=== PATIENT | male | born 1960 | race Hispanic/Latino ===

== ENCOUNTER 2018-05-26 07:38 | Inpatient (IN) | payer MEDICAID ==
[2018-05-26] MEDS ORDERED: Albuterol 0.083% Inhal Sol (2.5 mg/3 mL) UD INH STA (08:33)
[2018-05-26] MEDS ORDERED: Albuterol 0.042% Inhal Sol (1.25 mg/3 mL) UD ONE (08:41)
--- NOTE | 2018-05-26 09:39 | RAD ---
Date of service: 05/26/2018 PROCEDURE: CHEST RADIOGRAPH, 1 VIEW HISTORY: dyspnea COMPARISON: None available. FINDINGS: LUNGS: Clear. PLEURA: No pneumothorax or pleural fluid seen. CARDIOVASCULAR: Normal. OSSEOUS STRUCTURES: No significant abnormalities.Left shoulder arthrosis and thoracic spondylosis VISUALIZED UPPER ABDOMEN: Normal. OTHER FINDINGS: None. IMPRESSION: No acute cardiopulmonary pathology appreciated.
[2018-05-26 10:02] LABS: BASO # 0.1 K/uL (0.0-0.2); BASO % 0.8 % (0.0-2.0); EOS # 0.6 K/uL (0.0-0.7); EOS % 8.2 % (0.0-4.0); HEMOGLOBIN 14.3 g/dL (12.0-18.0); LYMPH # 2.6 K/uL (1.0-4.3); LYMPH % 35.4 % (20.0-40.0); MEAN CELL VOLUME 94.3 fl (80.0-94.0); MEAN CORPUSCULAR HEMOGLOBIN 31.5 pg (27.0-31.0); MEAN CORPUSCULAR HGB CONC 33.4 g/dL (33.0-37.0); MEAN PLATELET VOLUME 9.6 fl (7.2-11.7); MONO # 0.6 K/uL (0.0-0.8); MONO % 8.3 % (0.0-10.0); NEUT # 3.5 K/uL (1.8-7.0); NEUT % 47.3 % (50.0-75.0); RBC 4.52 Mil/uL (4.40-5.90); RED CELL DISTRIBUTION WIDTH 13.4 % (11.5-14.5); WHITE BLOOD COUNT 7.4 K/uL (4.8-10.8)
[2018-05-26 10:14] LABS: CALCIUM 9.6 mg/dL (8.4-10.2); GFR NON-AFRICAN AMERICAN 52
[2018-05-26 10:29] LABS: BLOOD UREA NITROGEN 16 mg/dl (9-20)
[2018-05-26 10:31] LABS: B-TYPE NATRIURETIC PEPTIDE 56.1 pg/ml (0-900)
--- NOTE | 2018-05-26 10:52 | ED PDOC ---
HPI: SOB/CHF/COPD Time Seen by Provider: 05/26/18 08:22 Chief Complaint (Nursing): Shortness Of Breath Chief Complaint (Provider): Shortness Of Breath History Per: Patient History/Exam Limitations: no limitations Onset/Duration Of Symptoms: Days (x1) Current Symptoms Are (Timing): Still Present Additional Complaint(s): 58 year old male, with a PMHx of asthma, brought via ambulance for shortness of breath x1 day. Patient states he was on the train this morning when he became short of breath. Patient states he went to use his inhaler, but realized he had lost it. Patient states he quickly became increasingly short of breath. Patient denies any chest pain, but confirms chest tightness and cough. Of note, patient reports he had a PE of unknown cause 4 years ago and recently stopped taking Xarelto. News Videotape Editor: Dr. Kang Past Medical History Reviewed: Historical Data, Nursing Documentation, Vital Signs Vital Signs: Last Vital Signs Temp 98.3 F 05/26/18 07:43 Pulse 83 05/26/18 07:43 Resp 81 H 05/26/18 09:08 BP 110/61 05/26/18 09:08 Pulse Ox 93 L 05/26/18 09:08 - Medical History PMH: Asthma Other PMH: PE (2013) - Surgical History Surgical History: No Surg Hx - Family History Family History: States: Unknown Family Hx - Home Medications Home Medications: Ambulatory Orders Medication Instructions Recorded RX: Fluticasone/Salmeterol [Airduo 1 puff IH Q12 05/26/18 Respiclick 232-14 Mcg] Albuterol Sulfate [Ventolin Hfa] 3 puff IH QID PRN #1 ml 05/30/18 Fluticasone/Salmeterol 250/50 1 puff IH BID #1 puff 05/30/18 [Advair Diskus] RX: Pantoprazole [Protonix EC Tab] 40 mg PO DAILY #90 ect 05/30/18 RX: Rivaroxaban [Xarelto] 15 mg PO BIDWM 21 Days #42 tab 05/30/18 RX: predniSONE [predniSONE Tab] 10 mg PO DAILY #90 tab 05/30/18 Rivaroxaban [Xarelto] 20 mg PO DAILY #90 tab 05/30/18 - Allergies Allergies/Adverse Reactions: Allergies Allergy/AdvReac Type Severity Reaction Status Date / Time Penicillins Allergy Mild RASH Verified 05/26/18 07:46 Review of Systems ROS Statement: Except As Marked, All Systems Reviewed And Found Negative Cardiovascular: Negative for: Chest Pain, Light Headedness Respiratory: Positive for: Cough, Shortness of Breath Neurological: Negative for: Headache, Dizziness Physical Exam - Reviewed Nursing Documentation Reviewed: Yes Vital Signs Reviewed: Yes - Physical Exam Appears: Positive for: Non-toxic, No Acute Distress Head Exam: Positive for: ATRAUMATIC, NORMAL INSPECTION, NORMOCEPHALIC Skin: Positive for: Normal Color, Warm, DRY Eye Exam: Positive for: EOMI, Normal appearance, PERRL ENT: Positive for: Normal ENT Inspection Neck: Positive for: Normal, Painless ROM, Supple Cardiovascular/Chest: Positive for: Regular Rate, Rhythm. Negative for: Murmur Respiratory: Positive for: Decreased Breath Sounds (bilateral). Negative for: Wheezing, Respiratory Distress Gastrointestinal/Abdominal: Positive for: Normal Exam, Soft. Negative for: Tenderness Back: Positive for: Normal Inspection. Negative for: L CVA Tenderness, R CVA Tenderness, Vertebral Tenderness Extremity: Positive for: Normal ROM. Negative for: Pedal Edema, Deformity Neurologic/Psych: Positive for: Alert, Oriented - Laboratory Results Result Diagrams: 05/28/18 09:10 05/28/18 09:10 - ECG ECG: Positive for: Interpreted By Me, Viewed By Me Interpretation Of ECG: NSR at 88 BPM, normal QRS, (-) ST-T changes O2 Sat by Pulse Oximetry: 93 (NC) Medical Decision Making Medical Decision Makin Impression: Shortness of breath. Will r/o ACS or CHF. Plan: -EKG -Albuterol 2.5mg INH -Solu-Medrol 125mg IVP -Reevaluation 1040: Labs reviewed and found significant for elevated D Dimer. CT angio chest PE protocol ordered. 1239 CT ANGIO CHEST PE PROTOCOL FINDINGS: PULMONARY ARTERIES: Bi lateral subsegmental branch pulmonary emboli partially occluding the subsegmental pulmonary arterial branch lumens chronicity is unknown. No larger more proximal/central pulmonary emboli noted. AORTA: No acute findings. No thoracic aortic aneurysm. LUNGS: No nodule, or mass. Peripheral lingular subsegmental atelectasis and/or consolidation noted. This borders the left major fissure and left lateral pleural surface PLEURAL SPACES: . No effusion or pneumothorax. Additional findings as as above in the lung section HEART: Unremarkable. No cardiomegaly. No significant pericardial effusion. LYMPH NODES: No lymphadenopathy. BONES, CHEST WALL: Thoraco lumbar spondylosis with intervening degenerative disc disease changes. No fracture or destructive lesion OTHER FINDINGS: Unremarkable. IMPRESSION: Bilateral subsegmental branch pulmonary emboli partially occluding lumens here. Chronicity unknown. No more proximal central pulmonary emboli noted. No dissection. No aneurysm. Nonspecific subsegmental peripheral lingular mild atelectatic changes and/or consolidation as above. 1300: Case discussed with Dr. Samuel who agrees with plan for admission under Dr Barboza. Lovenox ordered for PE treatment. Scribe Attestation: Documented by Matt Pa, acting as a scribe for Sheryl Urbina MD. Provider Scribe Attestation: All medical record entries made by the Scribe were at my direction and personally dictated by me. I have reviewed the chart and agree that the record a ccurately reflects my personal performance of the history, physical exam, medical decision making, and the department course for this patient. I have also personally directed, reviewed, and agree with the discharge instructions and disposition. Disposition - Clinical Impression Clinical Impression: Pulmonary embolism - Patient ED Disposition Is Patient to be Admitted: Yes Discussed With DrMiranda: Moe Samuel Doctor Will See Patient In The: ED Counseled Patient/Family Regarding: Studies Performed, Diagnosis - Disposition Disposition Time: 13:00 Condition: FAIR - Pt Status Changed To: Hospital Disposition Of: Inpatient - Admit Certification Admit to Inpatient:: After my assessment, the patient will require hospitalization for at least two midnights. This is because of the severity of symptoms shown, intensity of services needed, and/or the medical risk in this patient being treated as an outpatient. - POA Present On Arrival: Deep Vein Thrombosis / PE
[2018-05-26] MEDS ORDERED: Lidocaine PF 2% (5 ml) Inj (For Cardiac Arrhy) ONE (11:23)
[2018-05-26] MEDS ORDERED: Iodixanol 320 MG/ML 100 ML BOTTLE IV ONE (11:53)
[2018-05-26] MEDS ORDERED: Sodium Chloride 0.9% 50 ML IV ONE (11:53)
[2018-05-26] MEDS ORDERED: Albuterol-Ipratrop 3 mg / 0.5 (3 ml) UD INH STA (12:33)
[2018-05-26] MEDS ORDERED: Magnesium Sulfate 2 gm/50 ml 0 GM/0 ML BAG ONE (12:39)
[2018-05-26] MEDS ORDERED: Albuterol-Ipratrop 3 mg / 0.5 (3 ml) UD ONE (12:39)
--- NOTE | 2018-05-26 12:43 | CT ---
Date of service: 05/26/2018 PROCEDURE: CT Chest with contrast (Pulmonary Angiogram) HISTORY: chest pain COMPARISON: None available. TECHNIQUE: Axial computed tomography images were obtained of the chest in the pulmonary arterial phase of enhancement. Coronal and sagittal reformatted images were created and reviewed. Intravenous contrast dose: 100 cc Visipaque 320 Radiation dose: Total exam DLP = 445 mGy-cm. This CT exam was performed using one or more of the following dose reduction techniques: Automated exposure control, adjustment of the mA and/or kV according to patient size, and/or use of iterative reconstruction technique. FINDINGS: PULMONARY ARTERIES: Bi lateral subsegmental branch pulmonary emboli partially occluding the subsegmental pulmonary arterial branch lumens chronicity is unknown. No larger more proximal/central pulmonary emboli noted. AORTA: No acute findings. No thoracic aortic aneurysm. LUNGS: No nodule, or mass. Peripheral lingular subsegmental atelectasis and/or consolidation noted. This borders the left major fissure and left lateral pleural surface PLEURAL SPACES: . No effusion or pneumothorax. Additional findings as as above in the lung section HEART: Unremarkable. No cardiomegaly. No significant pericardial effusion. LYMPH NODES: No lymphadenopathy. BONES, CHEST WALL: Thoraco lumbar spondylosis with intervening degenerative disc disease changes. No fracture or destructive lesion OTHER FINDINGS: Unremarkable. IMPRESSION: Bilateral subsegmental branch pulmonary emboli partially occluding lumens here. Chronicity unknown. No more proximal central pulmonary emboli noted. No dissection. No aneurysm. Nonspecific subsegmental peripheral lingular mild atelectatic changes and/or consolidation as above.
[2018-05-26] MEDS ORDERED: Magnesium Sulfate 1 GM in Dextrose 5% In Water 100 ML IVPB ONE (12:45)
[2018-05-26] MEDS ORDERED: Enoxaparin 100 mg Syringe SC STA (12:58)
[2018-05-26 13:28] LABS: PROTHROMBIN TIME 10.8 Seconds (9.8-13.1)
[2018-05-26 13:31] LABS: PARTIAL THROMBOPLASTIN TIME 33.7 Seconds (25.6-37.1)
--- NOTE | 2018-05-26 13:50 | CARD ---
APPROVED REPORT Date of service: 05/26/2018 EKG Measurement Heart [id number] HI 166P [id number] <Conclusion> Normal sinus rhythm Inferior infarct, age undetermined Abnormal ECG
--- NOTE | 2018-05-26 14:34 | CP.PCM.HP ---
History of Present Illness - History of Present Illness History of Present Illness: 58 years old male with a pmhx of asthma, pulmonary embolism 4 yrs ago, not currently on AC presented to ED with complaints of shortness of breath since this morning. Patient reports he was on his way to work this morning when he felt shortness of breath in the train. Patient lost his inhaler this AM and becomes increasingly short of breath with chest tightness and wheezing. Denies any chest pain, nausea, vomiting, dizziness, palpitation, fever, chills, GI or symptoms Patient has hx PE about 4 yrs ago and was taking Xarelto 20 mg po daily until recently about a month ago he stopped taking it. Patient was told by [facility] ED physician about 2 months ago to stop taking the Xarelto when he had negative CT scan for PE. 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 In the ED, chest CT showed Bilateral subsegmental branch pulmonary emboli partially occluding lumens here. Chronicity unknown. ROS: all 12 systems reviewed and negative except as mentioned in HPI Patch Sander: Dr. Kang PMHX: asthma, PE in 2013 PSHX: Right ear surgery Social hx: Denies smoking cigarettes. Drinks ETOH socially. Denies illicit drug uses Family hx: of heart attack at age 77, Maternal uncles: MS and DMII Allergies: PCN Medications: albuterol HFA, albuterol nebulizer, AirDuo RespiClick 232mcg/14 mcg ED course: EKG, CXR, chest CT, duoneb x3, solumedrol 125 ivp, mag sulfate 1 dose and lovenox 100 mg. Present on Admission - Present on Admission Any Indicators Present on Admission: Yes History of DVT/PE: Yes Review of Systems - Review of Systems All systems: reviewed and no additional remarkable complaints except Past Patient History - Past Social History Smoking Status: Never Smoked - PULMONARY Hx Asthma: Yes - PSYCHIATRIC Hx Substance Use: No Meds Allergies/Adverse Reactions: Allergies Allergy/AdvReac Type Severity Reaction Status Date / Time Penicillins Allergy Mild RASH Verified 05/26/18 07:46 Physical Exam - Constitutional Appears: Non-toxic, No Acute Distress - Eye Exam Eye Exam: EOMI, Normal appearance, PERRL - ENT Exam ENT Exam: Mucous Membranes Moist, Normal Exam - Respiratory Exam Respiratory Exam: Decreased Breath Sounds (B/L), NORMAL BREATHING PATTERN. absent: Accessory Muscle Use, Rales, Wheezes, Respiratory Distress - Cardiovascular Exam Cardiovascular Exam: REGULAR RHYTHM, +S1, +S2 - GI/Abdominal Exam GI & Abdominal Exam: Normal Bowel Sounds, Soft. absent: Tenderness - Extremities Exam Extremities exam: Positive for: normal inspection, pedal pulses present. Negative for: calf tenderness, pedal edema - Neurological Exam Neurological exam: Alert, CN II-XII Intact, Oriented x3 - Psychiatric Exam Psychiatric exam: Normal Affect, Normal Mood - Skin Skin Exam: Normal Color, Warm Results - Vital Signs Recent Vital Signs: Last Vital Signs Temp 98.1 F 05/26/18 12:28 Pulse 76 05/26/18 12:28 Resp 19 05/26/18 12:28 BP 130/66 05/26/18 12:28 Pulse Ox 93 L 05/26/18 14:13 - Labs Result Diagrams: 05/26/18 09:47 05/26/18 09:47 Labs: Laboratory Results - last 24 hr 05/26/18 05/26/18 05/26/18 09:47 09:47 09:47 WBC 7.4 RBC 4.52 Hgb 14.3 Hct 42.7 MCV 94.3 H MCH 31.5 H MCHC 33.4 RDW 13.4 Plt Count 252 MPV 9.6 Neut % (Auto) 47.3 L Lymph % (Auto) 35.4 Gray % (Auto) 8.3 Eos % (Auto) 8.2 H Baso % (Auto) 0.8 Neut # (Auto) 3.5 Lymph # (Auto) 2.6 [place] # (Auto) 0.6 Eos # (Auto) 0.6 Baso # (Auto) 0.1 PT INR APTT D-Dimer, Quantitative 232 H Sodium 141 Potassium 3.8 Chloride 106 Carbon Dioxide 23 Anion Gap 16 BUN 16 Creatinine 1.4 Est GFR ( Amer) > 60 Est GFR (Non-Af Amer) 52 Random Glucose 87 Calcium 9.6 Troponin I < 0.0120 NT-Pro-B Natriuret Pep 56.1 05/26/18 13:14 WBC RBC Hgb Hct MCV MCH MCHC RDW Plt Count MPV Neut % (Auto) Lymph % (Auto) [place] % (Auto) Eos % (Auto) Baso % (Auto) Neut # (Auto) Lymph # (Auto) [place] # (Auto) Eos # (Auto) Baso # (Auto) PT 10.8 INR 1.0 APTT 33.7 D-Dimer, Quantitative Sodium Potassium Chloride Carbon Dioxide Anion Gap BUN Creatinine Est GFR ( Amer) Est GFR (Non-Af Amer) Random Glucose Calcium Troponin I NT-Pro-B Natriuret Pep Assessment & Plan - Assessment and Plan (Free Text) Assessment: 58 years old male with a pmhx of asthma, pulmonary embolism in 2013, not currently on AC presented to ED with complaints of shortness of breath since this morning. Chest CT showed bilateral subsegmental branch pulmonary emboli partially occluding lumens here. Chronicity unknown. Patient is admitted for B/L subsegmental PE and asthma exacerbation. Plan: Admit to telemetry Pulmonary consult Hematology/oncology consult c/w therapeutic lovenox of 100 mg SC Q12hr Duoneb q6hr IV fluids Monitor vitals and respiratory status AM labs Plan d/w Dr. Jimmie Araujo, pgy-2
[2018-05-26] MEDS ORDERED: Pantoprazole 40 mg EC Tab PO ONE (15:12)
[2018-05-26] MEDS: Pantoprazole 40 mg EC Tab PO SCH (15:15)
[2018-05-26] MEDS: Sodium Chloride 0.9% 1,000 ML IV SCH (15:16)
[2018-05-26] MEDS ORDERED: Albuterol-Ipratrop 3 mg / 0.5 (3 ml) UD INH PRN (19:53)
[2018-05-27] MEDS: Enoxaparin 100 mg Syringe SC SCH ×3 (00:32→21:17)
[2018-05-27] MEDS: Sodium Chloride 0.9% 1,000 ML IV SCH ×2 (01:48→12:12)
[2018-05-27 06:00] LABS: PARTIAL THROMBOPLASTIN TIME 37.4 Seconds (25.6-37.1)
[2018-05-27 06:02] LABS: ALB/GLOB RATIO 1.3 (1.0-2.1); ALBUMIN 3.8 g/dL (3.5-5.0); ALT/SGPT 45 U/L (21-72); AST/SGOT 33 U/L (17-59); BASO % 0.2 % (0.0-2.0); BLOOD UREA NITROGEN 19 mg/dl (9-20); GFR NON-AFRICAN AMERICAN > 60; HEMOGLOBIN 13.8 g/dL (12.0-18.0); LYMPH # 1.1 K/uL (1.0-4.3); LYMPH % 9.3 % (20.0-40.0); MEAN CELL VOLUME 94.7 fl (80.0-94.0); MEAN CORPUSCULAR HEMOGLOBIN 31.6 pg (27.0-31.0); MEAN CORPUSCULAR HGB CONC 33.4 g/dL (33.0-37.0); MEAN PLATELET VOLUME 9.6 fl (7.2-11.7); MONO # 0.8 K/uL (0.0-0.8); MONO % 7.2 % (0.0-10.0); NEUT # 9.6 K/uL (1.8-7.0); NEUT % 83.3 % (50.0-75.0); PLATELET COUNT 233 K/uL (130-400); RBC 4.35 Mil/uL (4.40-5.90); RED CELL DISTRIBUTION WIDTH 13.8 % (11.5-14.5); WHITE BLOOD COUNT 11.6 K/uL (4.8-10.8)
[2018-05-27 06:11] LABS: INR 1.1; PROTHROMBIN TIME 11.9 Seconds (9.8-13.1)
[2018-05-27 06:52] LABS: LYMPHOCYTE 7 % (20-50); MONOCYTE 8 % (0-10); NEUTROPHIL 85 % (42-75); PLATELET ESTIMATE NORMAL (NORMAL); TOTAL CELLS COUNTED 100
--- NOTE | 2018-05-27 08:33 | CP.PCM.CON ---
History of Present Illness - History of Present Illness History of Present Illness: This is a 58 yrs old male who came to the ED last night with c/o shortness of breath. He has a h/o asthma and uses a inhaler daily. He had forgotten his inhaler home yesterday and found that he could not breathe. He was brought to the ED for the same. He has a h/o having a PE 4 yrs ago, and was on xarelto 10 mg daily. He had done well but 4 months ago his physician stopped the Xarelto. 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 He does no5t recall having any tests done for hypercoagulable state, and he had no mitigating factors when he had his first PE and none now either. P/H Asthma on ventolin daily No h/o smoking, or drug addiction. Past Patient History - Past Medical History & Family History Past Medical History?: Yes - Past Social History Smoking Status: Never Smoked - CARDIAC Hx Cardiac Disorders: No - PULMONARY Hx Asthma: Yes - NEUROLOGICAL Hx Neurological Disorder: No - HEENT Hx HEENT Problems: No - RENAL Hx Chronic Kidney Disease: No - ENDOCRINE/METABOLIC Hx Endocrine Disorders: No - HEMATOLOGICAL/ONCOLOGICAL Hx Blood Disorders: No Hx AIDS: No Hx Human Immunodeficiency Virus (HIV): No - INTEGUMENTARY Hx Dermatological Problems: No - MUSCULOSKELETAL/RHEUMATOLOGICAL Hx Musculoskeletal Disorders: No Hx Falls: No - GASTROINTESTINAL Hx Gastrointestinal Disorders: No - GENITOURINARY/GYNECOLOGICAL Hx Genitourinary Disorders: No - PSYCHIATRIC Hx Substance Use: No - SURGICAL HISTORY Hx Surgeries: No - ANESTHESIA Hx Anesthesia: Yes Hx Anesthesia Reactions: No Hx Malignant Hyperthermia: No Has any member of the family had a problem w/ anesthesia?: No Meds Allergies/Adverse Reactions: Allergies Allergy/AdvReac Type Severity Reaction Status Date / Time Penicillins Allergy Mild RASH Verified 05/26/18 07:46 - Medications Medications: Current Medications Acetaminophen (Tylenol 325mg Tab) 650 mg PO Q6 PRN PRN Reason: Pain, moderate (4-7) Albuterol/Ipratropium (Duoneb 3 Mg/0.5 Mg (3 Ml) Ud) 3 ml INH RQ6 PRN PRN Reason: Shortness of Breath Enoxaparin Sodium (Lovenox) 100 mg SC Q12 ALBERTO; Protocol Last Admin: 05/27/18 00:32 Dose: 100 mg Sodium Chloride (Sodium Chloride 0.9%) 1,000 mls @ 100 mls/hr IV .Q10H [facility] Last Admin: 05/27/18 01:48 Dose: 100 mls/hr Ondansetron HCl (Zofran Inj) 4 mg IVP Q6 PRN PRN Reason: Nausea/Vomiting Pantoprazole Sodium (Protonix Ec Tab) 40 mg PO DAILY [facility] Last Admin: 05/26/18 15:15 Dose: 40 mg Physical Exam - Additional Findings Additional findings: Physical exam; Alert,well oriented in no acute distress Neck: supple, no adenopahty Chest; Air entry slightly impaired bilateral breath sounds Heart RSR, no murmur, Abd; Soft, obese, no mass or h/s megaly Exteremities , no evidence of DVT. Results - Vital Signs Recent Vital Signs: Last Vital Signs Temp 97.6 F 05/27/18 08:17 Pulse 73 05/27/18 08:17 Resp 20 05/27/18 08:17 BP 107/70 05/27/18 08:17 Pulse Ox 96 05/27/18 08:17 - Labs Result Diagrams: 05/27/18 04:14 05/27/18 04:14 Labs: Laboratory Results - last 24 hr 05/26/18 05/26/18 05/26/18 09:47 09:47 09:47 WBC 7.4 RBC 4.52 Hgb 14.3 Hct 42.7 MCV 94.3 H MCH 31.5 H MCHC 33.4 RDW 13.4 Plt Count 252 MPV 9.6 Neut % (Auto) 47.3 L Lymph % (Auto) 35.4 [place] % (Auto) 8.3 Eos % (Auto) 8.2 H Baso % (Auto) 0.8 Neut # (Auto) 3.5 Lymph # (Auto) 2.6 [place] # (Auto) 0.6 Eos # (Auto) 0.6 Baso # (Auto) 0.1 Neutrophils % (Manual) Lymphocytes % (Manual) Monocytes % (Manual) Platelet Estimate PT INR APTT D-Dimer, Quantitative 232 H Sodium 141 Potassium 3.8 Chloride 106 Carbon Dioxide 23 Anion Gap 16 BUN 16 Creatinine 1.4 Est GFR ( Amer) > 60 Est GFR (Non-Af Amer) 52 Random Glucose 87 Calcium 9.6 Phosphorus Magnesium Total Bilirubin AST ALT Alkaline Phosphatase Troponin I < 0.0120 NT-Pro-B Natriuret Pep 56.1 Total Protein Albumin Globulin Albumin/Globulin Ratio 05/26/18 05/26/18 05/26/18 13:14 15:09 22:08 WBC RBC Hgb Hct MCV MCH MCHC RDW Plt Count MPV Neut % (Auto) Lymph % (Auto) [place] % (Auto) Eos % (Auto) Baso % (Auto) Neut # (Auto) Lymph # (Auto) [place] # (Auto) Eos # (Auto) Baso # (Auto) Neutrophils % (Manual) Lymphocytes % (Manual) Monocytes % (Manual) Platelet Estimate PT 10.8 INR 1.0 APTT 33.7 D-Dimer, Quantitative Sodium Potassium Chloride Carbon Dioxide Anion Gap BUN Creatinine Est GFR ( Amer) Est GFR (Non-Af Amer) Random Glucose Calcium Phosphorus Magnesium Total Bilirubin AST ALT Alkaline Phosphatase Troponin I < 0.0120 < 0.0120 NT-Pro-B Natriuret Pep Total Protein Albumin Globulin Albumin/Globulin Ratio 05/27/18 05/27/18 05/27/18 04:14 04:14 04:14 WBC 11.6 H D RBC 4.35 L Hgb 13.8 Hct 41.2 MCV 94.7 H MCH 31.6 H MCHC 33.4 RDW 13.8 Plt Count 233 MPV 9.6 Neut % (Auto) 83.3 H Lymph % (Auto) 9.3 L [place] % (Auto) 7.2 Eos % (Auto) 0.0 Baso % (Auto) 0.2 Neut # (Auto) 9.6 H Lymph # (Auto) 1.1 [place] # (Auto) 0.8 Eos # (Auto) 0.0 Baso # (Auto) 0.0 Neutrophils % (Manual) 85 H Lymphocytes % (Manual) 7 L Monocytes % (Manual) 8 Platelet Estimate Normal PT 11.9 INR 1.1 APTT 37.4 H D-Dimer, Quantitative Sodium 138 Potassium 4.3 Chloride 106 Carbon Dioxide 24 Anion Gap 12 BUN 19 Creatinine 1.1 Est GFR ( Amer) > 60 Est GFR (Non-Af Amer) > 60 Random Glucose 116 H Calcium 9.0 Phosphorus 4.4 Magnesium 2.0 Total Bilirubin 0.4 AST 33 ALT 45 Alkaline Phosphatase 69 Troponin I NT-Pro-B Natriuret Pep Total Protein 6.8 Albumin 3.8 Globulin 3.0 Albumin/Globulin Ratio 1.3 Assessment & Plan - Assessment and Plan (Free Text) Assessment: Impression: bilateral subsegmantal branch PE partially occluding the lumen R/O primary hypercoagulopathy R/O an occult GI malignancy Plan: Plan; Have ordered tests for hypercoagulability CT scan abdomen to r/o malignancy
--- NOTE | 2018-05-27 09:16 | CP.PCM.PN ---
Subjective - Date & Time of Evaluation Date of Evaluation: 05/27/18 Time of Evaluation: 09:21 - Subjective Subjective: 58 YR OLD MALE REFERRED FOR PULMONARY EVALUATION BECAUSE OF SHORTNESS OF BREATH AND EXERCISE INTOLERANCE X SEVERAL DAYS,WORSE ON THE DAY OF ADMISSION.PT HAS A HISTORY OF PULMONARY EMBOLI 4 YRS AGO;HAS BEEN ON XARELTO X 4 YRS[RECENTLY D/ JOHN].HISTORY OF ASTHMA. NON-SMOKER/DRUGS/ETOH WORKS A BOUNCER Objective - Vital Signs/Intake and Output Vital Signs (last 24 hours): Temp Pulse Resp BP Pulse Ox 97.6 F 73 20 107/70 96 05/27/18 08:17 05/27/18 08:17 05/27/18 08:17 05/27/18 08:17 05/27/18 08:17 Intake and Output: 05/27/18 05/27/18 06:59 18:59 Intake Total 1200 Balance 1200 - Medications Medications: Current Medications Acetaminophen (Tylenol 325mg Tab) 650 mg PO Q6 PRN PRN Reason: Pain, moderate (4-7) Albuterol/Ipratropium (Duoneb 3 Mg/0.5 Mg (3 Ml) Ud) 3 ml INH RQ6 PRN PRN Reason: Shortness of Breath Diatrizoate Meglum/Diatrizoate Sod (-Gastroview 66-10% (30 Ml)) 30 ml PO ONCE ONE Stop: 05/27/18 09:03 Enoxaparin Sodium (Lovenox) 100 mg SC Q12 ALBERTO; Protocol Last Admin: 05/27/18 00:32 Dose: 100 mg Sodium Chloride (Sodium Chloride 0.9%) 1,000 mls @ 100 mls/hr IV .Q10H [facility] Last Admin: 05/27/18 01:48 Dose: 100 mls/hr Ondansetron HCl (Zofran Inj) 4 mg IVP Q6 PRN PRN Reason: Nausea/Vomiting Pantoprazole Sodium (Protonix Ec Tab) 40 mg PO DAILY [facility]O Last Admin: 05/26/18 15:15 Dose: 40 mg - Labs Labs: 05/27/18 04:14 05/27/18 04:14 PT 11.9 Seconds (9.8-13.1) 05/27/18 04:14 INR 1.1 05/27/18 04:14 APTT 37.4 Seconds (25.6-37.1) H 05/27/18 04:14 - Constitutional Appears: No Acute Distress - Head Exam Head Exam: ATRAUMATIC, NORMAL INSPECTION, NORMOCEPHALIC - Eye Exam Eye Exam: EOMI, Normal appearance, PERRL Pupil Exam: NORMAL ACCOMODATION, PERRL - ENT Exam ENT Exam: Mucous Membranes Moist, Normal Exam - Neck Exam Neck Exam: Full ROM, Normal Inspection. absent: Lymphadenopathy - Respiratory Exam Respiratory Exam: Wheezes, NORMAL BREATHING PATTERN - Cardiovascular Exam Cardiovascular Exam: REGULAR RHYTHM, +S1, +S2. absent: Murmur - GI/Abdominal Exam GI & Abdominal Exam: Soft, Normal Bowel Sounds. absent: Tenderness - Rectal Exam Rectal Exam: NORMAL INSPECTION - Extremities Exam Extremities Exam: Full ROM, Normal Capillary Refill, Normal Inspection. absent: Joint Swelling, Pedal Edema - Back Exam Back Exam: NORMAL INSPECTION - Neurological Exam Neurological Exam: Alert, Awake, CN II-XII Intact, Normal Gait, Oriented x3 - Psychiatric Exam Psychiatric exam: Normal Affect, Normal Mood - Skin Skin Exam: Dry, Intact, Normal Color, Warm Assessment and Plan - Assessment and Plan (Free Text) Assessment: ACUTE PULMONARY EMBOLI--R/O BLOOD DYSCRASIAS R/O DVT ASTHMA Plan: VENOUS DOPPLER OF LEGS NEBULIZED BRONCHODILATORS AND O2 HEMATOLOGY EVAL ANTICOAGULATION RX
[2018-05-27] MEDS: Pantoprazole 40 mg EC Tab PO SCH (09:35)
[2018-05-27] MEDS ORDERED: Diatriz Meglumine/Diatriz Sod 30 ML BOTTLE PO ONE (11:00)
[2018-05-27] MEDS: Albuterol-Ipratrop 3 mg / 0.5 (3 ml) UD INH PRN (11:04)
[2018-05-27 13:02] LABS: ABG ALLEN TEST YES; ARTERIAL BLOOD GAS HCO3 26.9 mmol/L (21-28); ARTERIAL BLOOD GAS O2 SAT 98.7 % (95-98); ARTERIAL BLOOD GAS PCO2 41 mm/Hg (35-45); ARTERIAL BLOOD GAS PH 7.43 (7.35-7.45); ARTERIAL BLOOD GAS PO2 91 mm/Hg (80-100); ARTERIAL BLOOD GAS TCO2 28.5 mmol/L (22-28)
--- NOTE | 2018-05-27 13:21 | CP.PCM.PN ---
Subjective - Date & Time of Evaluation Date of Evaluation: 05/27/18 Time of Evaluation: 09:45 - Subjective Subjective: Patient seen and examined this morning with Dr. Barboza. Patient reports feeling slightly better but still feels some shortness of breath. No acute overnight events. Denies chest pain, nausea, vomiting, fever, chills or dizziness. Objective - Vital Signs/Intake and Output Vital Signs (last 24 hours): Temp Pulse Resp BP Pulse Ox 97.7 F 78 18 119/73 97 05/27/18 13:03 05/27/18 13:03 05/27/18 13:03 05/27/18 13:03 05/27/18 13:03 Intake and Output: 05/27/18 05/27/18 06:59 18:59 Intake Total 1200 Balance 1200 - Medications Medications: Current Medications Acetaminophen (Tylenol 325mg Tab) 650 mg PO Q6 PRN PRN Reason: Pain, moderate (4-7) Albuterol/Ipratropium (Duoneb 3 Mg/0.5 Mg (3 Ml) Ud) 3 ml INH RQ6 ALBERTO Albuterol/Ipratropium (Duoneb 3 Mg/0.5 Mg (3 Ml) Ud) 3 ml INH RQ4 PRN PRN Reason: Shortness of Breath Last Admin: 05/27/18 11:04 Dose: 3 ml Enoxaparin Sodium (Lovenox) 100 mg SC Q12 ALBERTO; Protocol Last Admin: 05/27/18 09:34 Dose: 100 mg Sodium Chloride (Sodium Chloride 0.9%) 1,000 mls @ 100 mls/hr IV .Q10H ALBERTO Last Admin: 05/27/18 12:12 Dose: 100 mls/hr Ondansetron HCl (Zofran Inj) 4 mg IVP Q6 PRN PRN Reason: Nausea/Vomiting Pantoprazole Sodium (Protonix Ec Tab) 40 mg PO DAILY ALBERTO Last Admin: 05/27/18 09:35 Dose: 40 mg - Labs Labs: 05/27/18 04:14 05/27/18 04:14 PT 11.9 Seconds (9.8-13.1) 05/27/18 04:14 INR 1.1 05/27/18 04:14 APTT 37.4 Seconds (25.6-37.1) H 05/27/18 04:14 - Constitutional Appears: Non-toxic, No Acute Distress - ENT Exam ENT Exam: Mucous Membranes Moist - Respiratory Exam Respiratory Exam: Decreased Breath Sounds (B/L), NORMAL BREATHING PATTERN. absent: Rhonchi, Wheezes, Respiratory Distress - Cardiovascular Exam Cardiovascular Exam: REGULAR RHYTHM, +S1, +S2 - GI/Abdominal Exam GI & Abdominal Exam: Soft, Normal Bowel Sounds. absent: Tenderness - Neurological Exam Neurological Exam: Alert, Awake, Oriented x3 - Psychiatric Exam Psychiatric exam: Normal Affect, Normal Mood. absent: Anxious - Skin Skin Exam: Normal Color, Warm Assessment and Plan - Assessment and Plan (Free Text) Assessment: 58 years old male with a pmhx of asthma, pulmonary embolism in 2013, not currently on AC presented to ED with complaints of shortness of breath since this morning. Chest CT showed bilateral subsegmental branch pulmonary emboli partially occluding lumens here. Chronicity unknown. Patient is admitted for B/L subsegmental PE and asthma exacerbation. Plan: Pulmonary consult: Dr. Troncoso, consult appreciated, f/u recommendation Hematology/oncology consult: Dr. Ortega, consult appreciated, f/u recommendations. c/w therapeutic lovenox of 100 mg SC Q12hr Duoneb q4hr IV fluids Monitor vitals and respiratory status F/U AM labs Plan d/w Dr.Jurado Sultan Araujo, pgy-2
[2018-05-27] MEDS: Albuterol-Ipratrop 3 mg / 0.5 (3 ml) UD INH SCH ×2 (13:24→19:36)
--- NOTE | 2018-05-27 13:42 | PQF ---
PROVIDER RESPONSE TEXT: Mild intermittent REVIEWER QUERY TEXT: Asthma Specificity and Type Asthma is documented in the Medical Record. Please specify the type of asthma: Such as: -- Mild intermittent -- Mild persistent -- Moderate persistent -- Other, please specify H and P: Patient is admitted for B/L subsegmental PE and asthma exacerbation. - Nebs stat and Duoneb q6hr, 2L Nasal Cannula O2, Pulmonary consult ordered The patient's Clinical Indicators include: xx Query created by: Cynthia Arnold on 05/27/2018 8:36 AM Electronically signed by: Ritchie Barboza MD 05/27/2018 1:40 PM
[2018-05-27] MEDS ORDERED: Iohexol 300 100 ML IJ ONE (14:44)
[2018-05-27] MEDS ORDERED: Sodium Chloride 0.9% 50 ML IV ONE (14:44)
--- NOTE | 2018-05-27 14:53 | US ---
Date of service: 05/27/2018 PROCEDURE: Bilateral lower extremity venous duplex Doppler. HISTORY: DVT COMPARISON: Not available TECHNIQUE: Bilateral common femoral, superficial femoral, popliteal and posterior tibial veins were evaluated. Flow was assessed with color Doppler, compressibility, assessment of phasic flow and augmentation response. FINDINGS: COMMON FEMORAL VEIN: Right CFV: Unremarkable. Left CFV: Unremarkable. SUPERFICIAL FEMORAL VEIN: Right SFV: Unremarkable. Left SFV: Unremarkable. POPLITEAL VEIN: Right Popliteal: Unremarkable. Left Popliteal: Unremarkable. POSTERIOR TIBIAL VEIN: Right PTV: Unremarkable. Left PTV: Unremarkable. OTHER FINDINGS: None. IMPRESSION: No evidence of deep venous thrombosis.
--- NOTE | 2018-05-27 15:31 | CT ---
Date of service: 05/27/2018 PROCEDURE: CT Abdomen and Pelvis with contrast HISTORY: r/o occult abdominal maligNANCY COMPARISON: Not available TECHNIQUE: Contrast dose: 100 mL Omnipaque 300 Radiation dose: Total exam DLP = 964.03 mGy-cm. This CT exam was performed using one or more of the following dose reduction techniques: Automated exposure control, adjustment of the mA and/or kV according to patient size, and/or use of iterative reconstruction technique. FINDINGS: LOWER THORAX: Unremarkable. LIVER: Unremarkable. No gross lesion or ductal dilatation. GALLBLADDER AND BILE DUCTS: Unremarkable. PANCREAS: Unremarkable. No gross lesion or ductal dilatation. SPLEEN: Unremarkable. ADRENALS: Unremarkable. No mass. KIDNEYS AND URETERS: 2 mm nonobstructing right lower pole renal calculus. No left renal calculus. No renal mass. No hydronephrosis. VASCULATURE: Unremarkable. No aortic aneurysm. BOWEL: Sigmoid diverticulosis without evidence of diverticulitis. No bowel obstruction. No other abnormal bowel loops are identified. APPENDIX: Normal appendix. PERITONEUM: Unremarkable. No free fluid. No free air. LYMPH NODES: Unremarkable. No enlarged lymph nodes. BLADDER: Suboptimally distended. Grossly unremarkable. REPRODUCTIVE: Normal prostate BONES: No acute fracture. OTHER FINDINGS: None. IMPRESSION: No evidence of malignancy. 2 mm nonobstructing right lower pole renal calculus. Sigmoid diverticulosis without evidence of diverticulitis. No other significant abnormality.
[2018-05-28] MEDS: Albuterol-Ipratrop 3 mg / 0.5 (3 ml) UD INH SCH ×4 (01:46→19:47)
[2018-05-28] MEDS: Pantoprazole 40 mg EC Tab PO SCH (09:05)
[2018-05-28] MEDS: Enoxaparin 100 mg Syringe SC SCH ×2 (09:05→21:35)
[2018-05-28 09:17] LABS: HEMOGLOBIN 13.3 g/dL (12.0-18.0); MEAN CELL VOLUME 95.3 fl (80.0-94.0); MEAN CORPUSCULAR HGB CONC 33.6 g/dL (33.0-37.0); RBC 4.17 Mil/uL (4.40-5.90); RED CELL DISTRIBUTION WIDTH 13.7 % (11.5-14.5)
[2018-05-28 09:31] LABS: BLOOD UREA NITROGEN 20 mg/dl (9-20); CALCIUM 8.8 mg/dL (8.4-10.2); GFR NON-AFRICAN AMERICAN > 60
--- NOTE | 2018-05-28 09:48 | CP.PCM.PCO ---
Assessment & Plan - Assessment and Plan (Free Text) Assessment: pt. with intermittent cough, reports mild sob Lungs diffuse expiratory wheezing Pt. started on solumedrol 60 mg ivpb q8hrs ppi, duoneb ATC and prn Above d/w
--- NOTE | 2018-05-28 09:50 | CP.PCM.PN ---
Subjective - Date & Time of Evaluation Date of Evaluation: 05/28/18 Time of Evaluation: 09:47 - Subjective Subjective: Pt c/o a little wheezing today. His CT scan of the abdomen was negative,and the results from the hypercoag work up are still pending. Continue the lovenox until he breaths better. He can then be discharged on xarelto. Objective - Vital Signs/Intake and Output Vital Signs (last 24 hours): Temp Pulse Resp BP Pulse Ox 97.6 F 51 L 20 129/79 99 05/28/18 09:37 05/28/18 09:37 05/28/18 09:37 05/28/18 09:37 05/28/18 09:37 - Medications Medications: Current Medications Acetaminophen (Tylenol 325mg Tab) 650 mg PO Q6 PRN PRN Reason: Pain, moderate (4-7) Albuterol/Ipratropium (Duoneb 3 Mg/0.5 Mg (3 Ml) Ud) 3 ml INH RQ6 ALBERTO Last Admin: 05/28/18 07:08 Dose: 3 ml Albuterol/Ipratropium (Duoneb 3 Mg/0.5 Mg (3 Ml) Ud) 3 ml INH RQ4 PRN PRN Reason: Shortness of Breath Last Admin: 05/27/18 11:04 Dose: 3 ml Enoxaparin Sodium (Lovenox) 100 mg SC Q12 ALBERTO; Protocol Last Admin: 05/28/18 09:05 Dose: 100 mg Methylprednisolone 60 mg/ (Sodium Chloride) 50 mls @ 100 mls/hr IVPB Q8 ALBERTO Ondansetron HCl (Zofran Inj) 4 mg IVP Q6 PRN PRN Reason: Nausea/Vomiting Pantoprazole Sodium (Protonix Ec Tab) 40 mg PO DAILY ALBERTO Last Admin: 05/28/18 09:05 Dose: 40 mg - Labs Labs: 05/28/18 09:10 05/28/18 09:10 PT 11.9 Seconds (9.8-13.1) 05/27/18 04:14 INR 1.1 05/27/18 04:14 APTT 37.4 Seconds (25.6-37.1) H 05/27/18 04:14
[2018-05-28] MEDS ORDERED: methylPREDNISolone 60 MG in Sodium Chloride 0.9% 50 ML IVPB SCH ×2 (10:00→17:00)
[2018-05-28] MEDS: Albuterol-Ipratrop 3 mg / 0.5 (3 ml) UD INH PRN (11:16)
--- NOTE | 2018-05-28 12:00 | CP.PCM.PN ---
Subjective - Date & Time of Evaluation Date of Evaluation: 05/28/18 Time of Evaluation: 08:40 - Subjective Subjective: Patient seen and examined with Dr. Barboza this morning. No acute overnight events. Patient reports some shortness of breath and wheezing. Denies chest pain, fever, chills or dizziness. No other complaints Objective - Vital Signs/Intake and Output Vital Signs (last 24 hours): Temp Pulse Resp BP Pulse Ox 97.6 F 51 L 20 129/79 99 05/28/18 09:37 05/28/18 09:37 05/28/18 09:37 05/28/18 09:37 05/28/18 09:37 - Medications Medications: Current Medications Acetaminophen (Tylenol 325mg Tab) 650 mg PO Q6 PRN PRN Reason: Pain, moderate (4-7) Albuterol/Ipratropium (Duoneb 3 Mg/0.5 Mg (3 Ml) Ud) 3 ml INH RQ6 ALBERTO Last Admin: 05/28/18 07:08 Dose: 3 ml Albuterol/Ipratropium (Duoneb 3 Mg/0.5 Mg (3 Ml) Ud) 3 ml INH RQ4 PRN PRN Reason: Shortness of Breath Last Admin: 05/28/18 11:16 Dose: 3 ml Enoxaparin Sodium (Lovenox) 100 mg SC Q12 ALBERTO; Protocol Last Admin: 05/28/18 09:05 Dose: 100 mg Ondansetron HCl (Zofran Inj) 4 mg IVP Q6 PRN PRN Reason: Nausea/Vomiting Pantoprazole Sodium (Protonix Ec Tab) 40 mg PO DAILY ALBERTO Last Admin: 05/28/18 09:05 Dose: 40 mg - Labs Labs: 05/28/18 09:10 05/28/18 09:10 PT 11.9 Seconds (9.8-13.1) 05/27/18 04:14 INR 1.1 05/27/18 04:14 APTT 37.4 Seconds (25.6-37.1) H 05/27/18 04:14 - Additional Findings Additional findings: - Constitutional Appears: Non-toxic, No Acute Distress - ENT Exam ENT Exam: Mucous Membranes Moist - Respiratory Exam Respiratory Exam: Diffuse expiratory wheezing with prolong expiratory phase. NORMAL BREATHING PATTERN. absent: Rhonchi, Respiratory Distress - Cardiovascular Exam Cardiovascular Exam: REGULAR RHYTHM, +S1, +S2 - GI/Abdominal Exam GI & Abdominal Exam: Soft, Normal Bowel Sounds. absent: Tenderness - Neurological Exam Neurological Exam: Alert, Awake, Oriented x3 - Psychiatric Exam Psychiatric exam: Normal Affect, Normal Mood. absent: Anxious - Skin Skin Exam: Normal Color, Warm Assessment and Plan - Assessment and Plan (Free Text) Assessment: 58 years old male with a pmhx of asthma, pulmonary embolism in 2013, not currently on AC presented to ED with complaints of shortness of breath since this morning. Chest CT showed bilateral subsegmental branch pulmonary emboli partially occluding lumens here. Chronicity unknown. Patient is admitted for B/L subsegmental PE and asthma exacerbation. Plan: Pulmonary consult: Dr. Troncoso, consult appreciated, f/u recommendation Hematology/oncology consult: Dr. Ortega, consult appreciated, f/u recommendations. c/w therapeutic lovenox of 100 mg SC Q12hr Duoneb q4hr Start solumedrol 60 mg IVPB q8 hrs Monitor vitals and respiratory status CT A/P : neg for malignancy B/L LE duplex US: neg for DVT F/U AM labs Plan d/w Dr.Jurado Sultan Araujo, pgy-2
--- NOTE | 2018-05-28 13:03 | CP.PCM.PN ---
Subjective - Date & Time of Evaluation Date of Evaluation: 05/28/18 Time of Evaluation: 13:04 - Subjective Subjective: MILD SOB WITH WHEEZING TODAY Objective - Vital Signs/Intake and Output Vital Signs (last 24 hours): Temp Pulse Resp BP Pulse Ox 97.5 F L 63 20 127/78 95 05/28/18 12:49 05/28/18 12:49 05/28/18 12:49 05/28/18 12:49 05/28/18 12:49 - Medications Medications: Current Medications Acetaminophen (Tylenol 325mg Tab) 650 mg PO Q6 PRN PRN Reason: Pain, moderate (4-7) Albuterol/Ipratropium (Duoneb 3 Mg/0.5 Mg (3 Ml) Ud) 3 ml INH RQ6 ALBERTO Last Admin: 05/28/18 07:08 Dose: 3 ml Albuterol/Ipratropium (Duoneb 3 Mg/0.5 Mg (3 Ml) Ud) 3 ml INH RQ4 PRN PRN Reason: Shortness of Breath Last Admin: 05/28/18 11:16 Dose: 3 ml Enoxaparin Sodium (Lovenox) 100 mg SC Q12 ALBERTO; Protocol Last Admin: 05/28/18 09:05 Dose: 100 mg Methylprednisolone 60 mg/ (Sodium Chloride) 50 mls @ 100 mls/hr IVPB Q8 ALBERTO Ondansetron HCl (Zofran Inj) 4 mg IVP Q6 PRN PRN Reason: Nausea/Vomiting Pantoprazole Sodium (Protonix Ec Tab) 40 mg PO DAILY ALBERTO Last Admin: 05/28/18 09:05 Dose: 40 mg - Labs Labs: 05/28/18 09:10 05/28/18 09:10 PT 11.9 Seconds (9.8-13.1) 05/27/18 04:14 INR 1.1 05/27/18 04:14 APTT 37.4 Seconds (25.6-37.1) H 05/27/18 04:14 - Constitutional Appears: No Acute Distress - Head Exam Head Exam: ATRAUMATIC, NORMAL INSPECTION, NORMOCEPHALIC - Eye Exam Eye Exam: EOMI, Normal appearance, PERRL Pupil Exam: NORMAL ACCOMODATION, PERRL - ENT Exam ENT Exam: Mucous Membranes Moist, Normal Exam - Neck Exam Neck Exam: Full ROM, Normal Inspection. absent: Lymphadenopathy - Respiratory Exam Respiratory Exam: Wheezes, NORMAL BREATHING PATTERN - Cardiovascular Exam Cardiovascular Exam: REGULAR RHYTHM, +S1, +S2. absent: Murmur - GI/Abdominal Exam GI & Abdominal Exam: Soft, Normal Bowel Sounds. absent: Tenderness - Rectal Exam Rectal Exam: NORMAL INSPECTION - Extremities Exam Extremities Exam: Full ROM, Normal Capillary Refill, Normal Inspection. absent: Joint Swelling, Pedal Edema - Back Exam Back Exam: NORMAL INSPECTION - Neurological Exam Neurological Exam: Alert, Awake, CN II-XII Intact, Normal Gait, Oriented x3 - Psychiatric Exam Psychiatric exam: Normal Affect, Normal Mood - Skin Skin Exam: Dry, Intact, Normal Color, Warm Assessment and Plan - Assessment and Plan (Free Text) Assessment: ASTHMA PE Plan: ADD IV STEROID TO RX
[2018-05-29] MEDS: Albuterol-Ipratrop 3 mg / 0.5 (3 ml) UD INH SCH ×4 (01:45→19:02)
[2018-05-29] MEDS: Enoxaparin 100 mg Syringe SC SCH ×2 (09:40→21:40)
[2018-05-29] MEDS: Pantoprazole 40 mg EC Tab PO SCH (09:41)
--- NOTE | 2018-05-29 10:08 | CP.PCM.PN ---
Subjective - Date & Time of Evaluation Date of Evaluation: 05/29/18 Time of Evaluation: 10:08 - Subjective Subjective: FEELS BETTER TODAY SOB IMPROVED NO COUGH/CHEST PAINS Objective - Vital Signs/Intake and Output Vital Signs (last 24 hours): Temp Pulse Resp BP Pulse Ox 97.1 F L 66 19 116/65 99 05/29/18 05:00 05/29/18 05:00 05/29/18 05:00 05/29/18 05:00 05/29/18 05:00 - Medications Medications: Current Medications Acetaminophen (Tylenol 325mg Tab) 650 mg PO Q6 PRN PRN Reason: Pain, moderate (4-7) Albuterol/Ipratropium (Duoneb 3 Mg/0.5 Mg (3 Ml) Ud) 3 ml INH RQ6 ALBERTO Last Admin: 05/29/18 07:29 Dose: 3 ml Albuterol/Ipratropium (Duoneb 3 Mg/0.5 Mg (3 Ml) Ud) 3 ml INH RQ4 PRN PRN Reason: Shortness of Breath Last Admin: 05/28/18 11:16 Dose: 3 ml Enoxaparin Sodium (Lovenox) 100 mg SC Q12 ALBERTO; Protocol Last Admin: 05/29/18 09:40 Dose: 100 mg Methylprednisolone (Solu-Medrol) 60 mg IV Q8 ALBERTO Last Admin: 05/29/18 09:41 Dose: 60 mg Ondansetron HCl (Zofran Inj) 4 mg IVP Q6 PRN PRN Reason: Nausea/Vomiting Pantoprazole Sodium (Protonix Ec Tab) 40 mg PO DAILY [facility] Last Admin: 05/29/18 09:41 Dose: 40 mg - Labs Labs: 05/28/18 09:10 05/28/18 09:10 PT 11.9 Seconds (9.8-13.1) 05/27/18 04:14 INR 1.1 05/27/18 04:14 APTT 37.4 Seconds (25.6-37.1) H 05/27/18 04:14 - Constitutional Appears: No Acute Distress - Head Exam Head Exam: ATRAUMATIC, NORMAL INSPECTION, NORMOCEPHALIC - Eye Exam Eye Exam: EOMI, Normal appearance, PERRL Pupil Exam: NORMAL ACCOMODATION, PERRL - ENT Exam ENT Exam: Mucous Membranes Moist, Normal Exam - Neck Exam Neck Exam: Full ROM, Normal Inspection. absent: Lymphadenopathy - Respiratory Exam Respiratory Exam: Clear to Ausculation Bilateral, NORMAL BREATHING PATTERN - Cardiovascular Exam Cardiovascular Exam: REGULAR RHYTHM, +S1, +S2. absent: Murmur - GI/Abdominal Exam GI & Abdominal Exam: Soft, Normal Bowel Sounds. absent: Tenderness - Rectal Exam Rectal Exam: NORMAL INSPECTION - Extremities Exam Extremities Exam: Full ROM, Normal Capillary Refill, Normal Inspection. absent: Joint Swelling, Pedal Edema - Back Exam Back Exam: NORMAL INSPECTION - Neurological Exam Neurological Exam: Alert, Awake, CN II-XII Intact, Normal Gait, Oriented x3 - Psychiatric Exam Psychiatric exam: Normal Affect, Normal Mood - Skin Skin Exam: Dry, Intact, Normal Color, Warm Assessment and Plan - Assessment and Plan (Free Text) Assessment: ACUTE ASTHMA PULMONARY EMBOLI Plan: TAPER SEROIDS CONTINUE ANTICOAGULATION RX
[2018-05-29] MEDS: MethylPREDNISolone 40 mg Vial IV SCH (21:44)
[2018-05-30] MEDS: Albuterol-Ipratrop 3 mg / 0.5 (3 ml) UD INH SCH ×3 (02:07→13:34)
[2018-05-30] MEDS: MethylPREDNISolone 40 mg Vial IV SCH (09:29)
[2018-05-30] MEDS: Pantoprazole 40 mg EC Tab PO SCH (09:30)
[2018-05-30 09:49] VITALS: BP 133/85; PULSE 68; RESP 18; TEMP 97.5
--- NOTE | 2018-05-30 12:21 | CP.PCM.PN ---
Subjective - Date & Time of Evaluation Date of Evaluation: 05/29/18 Time of Evaluation: 18:00 - Subjective Subjective: Patient has less SOB. Objective - Vital Signs/Intake and Output Vital Signs (last 24 hours): Temp Pulse Resp BP Pulse Ox 97.5 F L 68 18 133/85 100 05/30/18 09:48 05/30/18 09:48 05/30/18 09:48 05/30/18 09:48 05/30/18 09:48 - Medications Medications: Current Medications Acetaminophen (Tylenol 325mg Tab) 650 mg PO Q6 PRN PRN Reason: Pain, moderate (4-7) Albuterol/Ipratropium (Duoneb 3 Mg/0.5 Mg (3 Ml) Ud) 3 ml INH RQ6 ALBERTO Last Admin: 05/30/18 08:42 Dose: 3 ml Albuterol/Ipratropium (Duoneb 3 Mg/0.5 Mg (3 Ml) Ud) 3 ml INH RQ4 PRN PRN Reason: Shortness of Breath Last Admin: 05/28/18 11:16 Dose: 3 ml Methylprednisolone (Solu-Medrol) 40 mg IV Q12 ALBERTO Last Admin: 05/30/18 09:29 Dose: 40 mg Ondansetron HCl (Zofran Inj) 4 mg IVP Q6 PRN PRN Reason: Nausea/Vomiting Pantoprazole Sodium (Protonix Ec Tab) 40 mg PO DAILY [facility] Last Admin: 05/30/18 09:30 Dose: 40 mg - Labs Labs: 05/28/18 09:10 05/28/18 09:10 PT 11.9 Seconds (9.8-13.1) 05/27/18 04:14 INR 1.1 05/27/18 04:14 APTT 37.4 Seconds (25.6-37.1) H 05/27/18 04:14
[2018-05-31 11:54] LABS: CARDIOLIPIN AB (IGA) <11 APL (<=11)
[2018-05-31 14:04] VITALS: O2SAT 93
== END 2018-05-30 15:43 | disposition home or self-care (01) | DRG 78 ==
LOC: H.ER 07:38 → H.ERHOLD 13:01 → H.TEL 16:13
PROVIDERS: ADMIT Family Medicine; ATTEND Family Medicine
DX: I26.99 Other pulmonary embolism without acute cor pulmonale (principal); J45.21 Mild intermittent asthma with (acute) exacerbation; J44.9 Chronic obstructive pulmonary disease, unspecified; I25.2 Old myocardial infarction; Z79.01 Long term (current) use of anticoagulants; Z83.3 Family history of diabetes mellitus; Z86.711 Personal history of pulmonary embolism